=== PATIENT | female | born 1995 | race African-American/Black ===

== ENCOUNTER 2017-04-29 21:27 | Emergency (ER) | payer OTHER | END 2017-04-29 21:59 | disposition home or self-care (01) | LOC: SCSER 21:27 | DX: R11.2 Nausea with vomiting, unspecified (principal); R19.7 Diarrhea, unspecified; J45.909 Unspecified asthma, uncomplicated | CPT/HCPCS: 99283 ==

== ENCOUNTER 2017-10-25 20:50 | Emergency (ER) | payer OTHER ==
[2017-10-25] MEDS ORDERED: Bicillin LA 1.2 MILLION UNITS/2 ML SYRINGE ONE (21:08)
[2017-10-25] MEDS ORDERED: Acetaminophen 500 MG TAB ONE (21:33)
== END 2017-10-25 21:21 | disposition home or self-care (01) ==
LOC: SCSER 20:50
DX: J02.9 Acute pharyngitis, unspecified (principal); J45.909 Unspecified asthma, uncomplicated
CPT/HCPCS: 96372; J0561

== ENCOUNTER 2019-01-14 10:22 | Emergency (ER) | payer OTHER | END 2019-01-14 11:13 | disposition home or self-care (01) | LOC: ERS 10:22 | DX: K13.0 Diseases of lips (principal); J45.909 Unspecified asthma, uncomplicated | CPT/HCPCS: 99283 ==